=== PATIENT | male | born 1965 | race Caucasian/White ===

== ENCOUNTER 2016-03-02 09:02 | Day surgery (SDC) | payer OTHER ==
[~2016-03-02 09:02] MED LIST: ACETAMINOPHEN 1000MG/100 ML PREMIX IV ONE; CEFAZOLIN 2 Gram 50 ML IVPB ONE
[2016-03-02 09:17] LABS: HEMATOCRIT 45.2 % (42.0-52.0); HEMOGLOBIN 14.5 gm/dl (14.0-18.0); MEAN CELL VOLUME 84.8 fl (81-97); MEAN CORPUSCULAR HEMOGLOBIN 27.2 pg (27-33); MEAN CORPUSCULAR HGB CONC 32.1 g/dl (32-36); MEAN PLATELET VOLUME 10.8 fl (7.4-10.4); PLATELET COUNT 373 K/uL (130-400); RED BLOOD COUNT 5.33 M/uL (4.40-5.70); RED CELL DISTRIBUTION WIDTH 17.7 % (11.5-14.5); WHITE BLOOD COUNT W/O DIFF 11.8 K/uL (4.2-12.2)
[2016-03-02 09:26] LABS: PLATELET ESTIMATE NORMAL (NORMAL)
[2016-03-02 09:29] LABS: INR 1.06; PARTIAL THROMBOPLASTIN TIME 31.7 SECONDS (24.5-39.1)
[2016-03-02] MEDS ORDERED: HYDROCODONE/APAP 5/325MG TABLET PO ONE (14:14)
[2016-03-02] MEDS ORDERED: BUPIVACAINE 0.25% W/EPI MPF 30ML VIAL IVP ONE (14:14)
[2016-03-02] MEDS ORDERED: PROPOFOL 10 MG/ML VIAL IV ONE (15:51)
[2016-03-02] MEDS ORDERED: ROCURONIUM BROMIDE 50MG/5ML VIAL IV ONE (15:51)
[2016-03-02] MEDS ORDERED: HYDROMORPHONE HCL 2 MG/ML VIAL IV ONE (15:51)
[2016-03-02] MEDS ORDERED: FENTANYL PF 100MCG/2ML VIAL IV ONE (15:51)
[2016-03-02] MEDS ORDERED: SEVOFLURANE 250 ML INH ONE (15:51)
--- NOTE | 2016-03-03 14:52 | Operative Note ---
OPERATIVE REPORT DATE OF PROCEDURE: 03/02/2016. SURGEON: Fabiano Stokes D.O. REFERRING PHYSICIAN: Farhan Calderon D.O. PREOPERATIVE DIAGNOSIS: REDUCIBLE RIGHT INGUINAL HERNIA. POSTOPERATIVE DIAGNOSIS: REDUCIBLE RIGHT INGUINAL HERNIA. PROCEDURE: Open right inguinal herniorrhaphy with mesh. INDICATIONS: The patient is a 58-year-old male who presented to the clinic with pain and bulging in his right inguinal region. He clearly had a reducible inguinal hernia on examination. We did discuss repair and the risks, benefits, and alternatives. The risks include bleeding, infection, acute and chronic pain , and recurrence. He understood this fully. Therefore consent was signed and questions were answered. DESCRIPTION OF PROCEDURE: He was taken to the operating room and was placed in the supine position. General anesthesia was administered per the Department of Anesthesia. The patient's right inguinal region was shaved of hair and prepped and draped in the usual fashion. Adequate time out was performed. The side was confirmed. He did receive a preoperative antibiotic. At this time a 3.0 cm oblique region was anesthetized with a total of 4.0 mL of 0.25% Sensorcaine with epinephrine. A 4.0-cm oblique incision was made. This was carried down through Mateo's layer to the aponeurosis external oblique. This was cleaned off and a harpreet was made with the scalpel blade. This was enlarged through the superficial inguinal ring with Metzenbaum scissors. Care was taken not to injure the underlying ilioinguinal nerve or spermatic cord. At this time superior and inferior flaps were developed and a Mihai was placed on the spermatic cord. This was dissected free from the underlying transversalis fascia. The patient had a moderate- to large-sized direct hernia noted. The cremasteric fibers were taken down. There was no indirect hernia or cord lipoma noted. At this time the floor was imbricated with 0 Vicryl. There were some bleeding issues from the inguinal ligament. It appeared there was a needle stick in the femoral vein. Due to the CT we will need, I did repair this with a 4-0 Prolene. Hemostasis was noted. At this time a plug was placed in the floor of the inguinal canal. This was sutured in place with 2-0 Vicryl. A right-sided ProGrip mesh was obtained. This was placed on the floor of the inguinal canal with excellent overlap of the pubic tubercle. Sutures went to the level of the pubic tubercle shelving portion of the inguinal ligament and the internal oblique aponeurosis. The mesh was pre-notched to accompany the deep inguinal ring. At this time the aponeurosis was closed over the cord with 2-0 Vicryl, Mateo's layer was closed with 3-0 Vicryl, and the skin was closed with 4-0 Vicryl. He was taken to the recovery room in satisfactory condition. FINDINGS AT THE TIME OF SURGERY: Direct inguinal hernia repaired as above. Fabiano Stokes D.O. Date Time JOB NUMBER: [id number] cc: Kamar Johnston
== END 2016-03-02 13:55 | disposition home or self-care (01) ==
LOC: SUR 09:02
PROVIDERS: ATTEND Surgery
DX: K40.90 Unilateral inguinal hernia, without obstruction or gangrene, not specified as recurrent (principal); Z79.01 Long term (current) use of anticoagulants; R56.9 Unspecified convulsions
CPT/HCPCS: 49505; 00830; 85730; 85610; 85027; J3010; J1170; J0690

== ENCOUNTER 2017-12-28 06:26 | Emergency (ER) | payer OTHER ==
--- NOTE | 2017-12-28 06:38 | Emergency Department Record ---
History of Present Illness - General Chief Complaint: Ankle/Foot Injury Stated Complaint: RT FOOT INJURY Time Seen by Provider: 12/28/17 06:32 Source: Patient, Family Mode of Arrival: Ambulatory Limitations: No limitations - History of Present Illness Initial Comments: 52 yo male presents with right foot pain. On Wednesday he mis-stepped and hit the foot on a concrete curb. He had mild pain initially that has gradually increased. The pain is over the great toe and 2nd toe into the distal foot. No prior disease of the right foot. The skin is intact. The nails are intact. MD Complaint: Foot injury -: Days(s) (4) Injury: Foot: Right, Toes: Right Type of Injury: Blunt Place: Home Severity: Moderate Improves With: Immobilization, Rest Worsens With: Movement, Palpation, Weight bearing Context: Direct blow Other Symptoms: Other Associated Symptoms: Swelling - Related Data Home Medications Medication Instructions Recorded Confirmed Last Taken Ampicillin Trihydrate 500 mg PO DAILY 12/28/17 12/28/17 Unknown Levetiracetam [Keppra] 1,000 mg PO BID 12/28/17 12/28/17 Unknown Levetiracetam [Keppra] 500 mg PO BID 12/28/17 12/28/17 Unknown Ruxolitinib Phosphate [Jakafi] 5 mg PO BID 12/28/17 12/28/17 Unknown Warfarin Sodium 4 mg PO DAILY 12/28/17 12/28/17 Unknown Allergies Allergy/AdvReac Type Severity Reaction Status Date / Time No Known Drug Allergies Allergy Verified 02/20/16 14:39 Review of Systems Constitutional: Denies: Chills, Fever, Malaise, Weakness Eyes: Denies: Eye discharge ENT: Denies: Congestion, Throat pain Respiratory: Denies: Cough Cardiovascular: Denies: Chest pain, Syncope Endocrine: Denies: Fatigue Gastrointestinal: Denies: Abdominal pain, Diarrhea, Nausea, Vomiting Genitourinary: Denies: Dysuria, Frequency, Hematuria Musculoskeletal: Reports: As per HPI, Arthralgia Skin: Reports: As per HPI, Bruising Neurological: Denies: Headache, Numbness, Tingling, Weakness Psychiatric: Denies: Anxiety Hematological/Lymphatic: Denies: Easy bleeding, Easy bruising, Swollen glands Past Medical History - SOCIAL HISTORY Smoking Status: Never smoker - RESPIRATORY Hx Respiratory Disorders: No - CARDIOVASCULAR Hx Deep Vein Thrombosis: Yes - NEURO Hx Seizures: Yes (last seizure Jun, 2009) - GI Hx GI Disorders: No - Hx Genitourinary Disorders: No - ENDOCRINE Hx Endocrine Disorders: No - MUSCULOSKELETAL Hx Musculoskeletal Disorders: No - PSYCH Hx Psych Problems: No - HEMATOLOGY/ONCOLOGY Hx Hematology/Oncology Disorders: Yes Comment:: history of polycythemia vera Family Medical History Hx Diabetes: Grandparents Physical Exam - General General Appearance: Alert, Oriented x3, Cooperative, No acute distress Limitations: No limitations - Head Head exam: Atraumatic, Normal inspection - Eye Eye exam: Normal appearance - ENT ENT exam: Normal exam Ear exam: Normal external inspection Nasal Exam: Normal inspection Mouth exam: Normal external inspection - Neck Neck exam: Normal inspection - Cardiovascular Peripheral Pulses: 2+: Dorsalis Pedis (R) - Rectal Rectal exam: Deferred - exam: Deferred - Extremities Extremities exam: Full ROM, Joint swelling, Normal capillary refill, Tenderness Image of Feet: 1 - mild swelling, tenderness, slight bruising. Intact skin, intact nails, no deformity, sensation intact, ROM intact - Neurological Neurological exam: Alert, Oriented X3. negative: Motor sensory deficit - Psychiatric Psychiatric exam: Normal affect, Normal mood - Skin Skin exam: Dry, Intact, Normal color, Warm. negative: Cyanosis, Diaphoretic, Erythema, Mottled Course Vital Signs 12/28/17 06:31 Temperature 97.5 F L Pulse Rate [ 85 Pulse Ox Probe] Respiratory 20 Rate Blood Pressure 131/74 [Left Arm] Pulse Ox 98 - Reevaluation(s) Reevaluation #1: 07:01 The prelim XR was reviewed. No definite fracture or dislocation. I discussed this is a prelim read and final read will be later. He will be placed in a supportive boot He will follow up this week with his PCP for a recheck Disposition Disposition: Discharge Clinical Impression: Contusion of foot, right Qualifiers: Encounter type: initial encounter Qualified Code(s): S90.31XA - Contusion of right foot, initial encounter Disposition: Home, Self-Care Condition: (1) Good Instructions: Foot Sprain (ED) Additional Instructions: Ice and elevate the foot to minimize swelling Call your doctor for a recheck if not improved in the next one week Use the boot for support and comfort Forms: Patient Portal Access Time of Disposition: 06:36 Quality - Quality Measures Quality Measures: N/A - Blood Pressure Screening Does Patient Have Any of the Following: No Blood Pressure Classification: Pre-Hypertensive BP Reading Systolic Measurement: 131 Diastolic Measurement: 74 Screening for High Blood Pressure: < Pre-Hypertensive BP, F/U Documented > [ [id number]] Pre-Hypertensive Follow-up Interventions: Referral to alternative/primary care provider.
--- NOTE | 2017-12-28 15:08 | RADIOLOGY REPORT ---
EXAM: RIGHT FOOT HISTORY: PAIN. TECHNIQUE: Three views of the right foot were performed. FINDINGS: There is degenerative change of the first metatarsal head. No evidence of fracture or dislocation. Mild peripheral vascular disease. IMPRESSION: DEGENERATIVE CHANGE OF THE FIRST METATARSAL HEAD. NO ACUTE PROCESS. JOB NUMBER: [id number] MTDD
== END 2017-12-28 07:13 | disposition home or self-care (01) ==
LOC: ER 06:26
DX: S90.31XA Contusion of right foot, initial encounter (principal); W22.8XXA Striking against or struck by other objects, initial encounter; Y92.009 Unspecified place in unspecified non-institutional (private) residence as the place of occurrence of the external cause
CPT/HCPCS: 99283